=== PATIENT | female | born 1965 | race Caucasian/White ===

== ENCOUNTER 2019-10-12 20:14 | Inpatient (IN) | payer MEDICAID ==
[~2019-10-12] VITALS: Ht 144.8 cm; Wt 54.9 kg
[~2019-10-12 20:14] MED LIST: AMLO-257 PO; SERT50TA12 PO
[2019-10-12] MEDS ORDERED: ASPI-1111 PO (23:27)
[2019-10-12] MEDS ORDERED: LISI-662 PO (23:27)
[2019-10-12] MEDS ORDERED: ALBU8HFA IH (23:27)
[2019-10-12] MEDS ORDERED: AMLO-258 PO (23:27)
[2019-10-12] MEDS ORDERED: DIVA-112 PO (23:27)
[2019-10-12] MEDS ORDERED: HYDR25TA84 PO (23:27)
[2019-10-12] MEDS ORDERED: MIRT30 PO (23:27)
[2019-10-12] MEDS ORDERED: CARI3CAP PO (23:27)
[2019-10-12] MEDS ORDERED: ATOR40TA28 PO (23:27)
[2019-10-12] MEDS ORDERED: ATEN100T92 PO (23:27)
[2019-10-12] MEDS ORDERED: DiphenhydrAMINE HCL 50 MG/ML VIAL IVP ONE (23:30)
[2019-10-12] MEDS ORDERED: LORazepam 2 MG/ML VIAL IVP ONE (23:30)
[2019-10-12 23:39] LABS: BASOPHILS % (AUTO) 0.8 % (0.0-2.0); EOSINOPHILS % (AUTO) 0.3 % (1.0-6.0); HEMATOCRIT 40.6 % (36-46); HEMOGLOBIN 13.4 g/dL (12.0-16.0); LYMPHOCYTES # (AUTO) 1.9 K/uL (1.0-4.8); LYMPHOCYTES % (AUTO) 15.8 % (22.0-44.0); MEAN CORPUSCULAR HEMOGLOBIN 28.3 pg (26.0-34.0); MEAN CORPUSCULAR HGB CONC 33.1 G/dL (31.0-37.0); MEAN CORPUSCULAR VOLUME 86 fL (80-100); MONOCYTES # (AUTO) 0.8 K/uL (0.1-1.0); MONOCYTES % (AUTO) 6.3 % (2.0-9.0); NEUTROPHILS # (AUTO) 9.3 K/uL (1.8-7.7); NEUTROPHILS % (AUTO) 76.8 % (40.0-70.0); PLATELET COUNT (AUTO) 265 K/uL (150-450); RED BLOOD CELL COUNT(AUTO) 4.74 MIL/uL (4.00-5.20); RED CELL DISTRIBUTION WIDTH 14.1 % (11.5-14.5)
[2019-10-12 23:45] LABS: ANION GAP 11 mmol/L (8-16); CALCIUM, TOTAL 10.2 mg/dL (8.8-10.5); CARBON DIOXIDE 28 mmol/L (22-29); CHLORIDE 106 mmol/L (98-107); CREATININE 1.02 mg/dL (0.60-1.30); GLOMERULAR FILTR. RATE CALC 56 mL/min (>60); GLUCOSE,RANDOM 117 mg/dL (70-110); POTASSIUM 3.5 mmol/L (3.5-5.1); SODIUM SERUM 145 mmol/L (136-145); UREA NITROGEN, BLOOD 27 mg/dL (7-18)
[2019-10-12 23:51] LABS: ALANINE AMINOTRANSFERASE 17 U/L (12-78); ALBUMIN 4.3 g/dL (3.4-5.0); ALKALINE PHOSPHATASE 85 U/L (46-116); ASPARTATE AMINOTRANSFERASE 13 U/L (15-37); BILIRUBIN,TOTAL 0.3 mg/dL (0.1-1.0)
[2019-10-12 23:54] LABS: ACETAMINOPHEN < 2 mcg/mL (10-30)
[2019-10-13 00:01] LABS: SALICYLATE < 2.8 mg/dL (2.8-20.0)
[2019-10-13] MEDS ORDERED: LORazepam 2 MG TABLET PO PRN (04:30)
[2019-10-13] MEDS ORDERED: ZOLPIDEM TARTRATE 10 MG TABLET PO PRN (04:30)
[2019-10-13] MEDS ORDERED: HALOPERIDOL 5 MG TABLET PO PRN (04:30)
[2019-10-13 05:10] LABS: AMPHET/METH SCREEN,URINE NEGATIVE (NEGATIVE); BARBITURATE SCREEN, URINE NEGATIVE (NEGATIVE); BENZODIAZEPINES SCREEN,URINE NEGATIVE (NEGATIVE); CANNABINOID SCREEN,URINE NEGATIVE (NEGATIVE); COCAINE SCREEN,URINE NEGATIVE (NEGATIVE); METHADONE SCREEN, URINE NEGATIVE (NEGATIVE); OPIATE SCREEN,URINE NEGATIVE (NEGATIVE)
[2019-10-13 05:14] LABS: PHENCYCLIDINE SCREEN,URINE NEGATIVE (NEGATIVE)
[2019-10-13] MEDS ORDERED: MAG HYDROX/AL HYDROX/SIMETH ES 30 ML SUSPENSION UDCUP PO PRN (08:30)
[2019-10-13] MEDS ORDERED: ALBUTEROL SULFATE HFA 90 MCG/PUFF 8 GM INHALER IH PRN (08:30)
[2019-10-13] MEDS ORDERED: PETROLATUM,WHITE 28 GM JELLY TP PRN (08:30)
[2019-10-13] MEDS ORDERED: LOPERAMIDE HCL 2 MG CAPSULE PO PRN (08:30)
[2019-10-13] MEDS ORDERED: ONDANSETRON HCL 4 MG TABLET PO PRN (08:30)
[2019-10-13] MEDS ORDERED: GuaiFENesin/D-METHORPHAN [SUGAR-FREE] 200-20MG/10 ML SYRUP UDCUP PO PRN (08:30)
[2019-10-13] MEDS ORDERED: NICOTINE 14 MG/24 HOUR PATCH TD PRN (08:30)
[2019-10-13] MEDS ORDERED: IBUPROFEN 400 MG TABLET PO PRN (08:30)
[2019-10-13] MEDS ORDERED: CloNIDine HCL 0.1 MG TABLET PO PRN (08:30)
[2019-10-13] MEDS ORDERED: MAGNESIUM HYDROXIDE SUSPENSION 30 ML UDCUP PO PRN (08:30)
[2019-10-13] MEDS ORDERED: ACETAMINOPHEN 325 MG TABLET PO PRN (08:30)
[2019-10-13] MEDS ORDERED: DOCUSATE SODIUM 100 MG CAPSULE PO PRN (08:30)
[2019-10-13] MEDS: ASPIRIN 81 MG EC TABLET PO SCH (09:00)
[2019-10-13] MEDS: LISINOPRIL 20 MG TABLET PO SCH (09:00)
[2019-10-13] MEDS: AmLODIPine BESYLATE 10 MG TABLET PO SCH (09:00)
[2019-10-13] MEDS: HydrALAZINE HCL 25 MG TABLET PO SCH ×4 (09:00→20:28)
[2019-10-13 09:09] VITALS: BP 145/80
[2019-10-13] MEDS: ATENOLOL 50 MG TABLET PO SCH (09:28)
[2019-10-13] MEDS ORDERED: PNEUMOCOCCAL VACCINE POLYVALENT 0.5 ML VIAL [PPSV23] IM ONE (10:30)
[2019-10-13] MEDS ORDERED: PERMETHRIN 5% 60 GM CREAM TP ONE (15:00)
[2019-10-13 16:16] VITALS: BP 132/66
[2019-10-13] MEDS ORDERED: DIVALPROEX SODIUM 500 MG DR TABLET PO SCH (17:00)
[2019-10-13] MEDS ORDERED: HALOPERIDOL LACTATE 5 MG/ML VIAL ONE (18:50)
[2019-10-13] MEDS ORDERED: DiphenhydrAMINE HCL 50 MG/ML VIAL ONE (18:50)
[2019-10-13] MEDS ORDERED: HALOPERIDOL LACTATE 5 MG/ML VIAL IM ONE (19:00)
[2019-10-13] MEDS ORDERED: DiphenhydrAMINE HCL 50 MG/ML VIAL IM ONE (19:00)
[2019-10-13] MEDS ORDERED: LORazepam 2 MG/ML VIAL IM ONE (19:00)
[2019-10-13 20:00] VITALS: BP 110/68
[2019-10-13] MEDS: MIRTAZAPINE 30 MG TABLET PO SCH (20:28)
[2019-10-13] MEDS: DIVALPROEX SODIUM 500 MG DR TABLET PO SCH (20:28)
[2019-10-13] MEDS: ATORVASTATIN CALCIUM 40 MG TABLET PO SCH (20:28)
[2019-10-14 00:43] VITALS: BP 136/71
[2019-10-14 08:44] VITALS: BP 124/81
[2019-10-14] MEDS: AmLODIPine BESYLATE 10 MG TABLET PO SCH (09:00)
[2019-10-14] MEDS: HydrALAZINE HCL 25 MG TABLET PO SCH ×5 (09:00→20:52)
[2019-10-14] MEDS: SERTRALINE HCL 50 MG TABLET PO SCH (09:00)
[2019-10-14] MEDS: ASPIRIN 81 MG EC TABLET PO SCH (09:00)
[2019-10-14] MEDS: DIVALPROEX SODIUM 500 MG DR TABLET PO SCH ×2 (09:00→20:52)
[2019-10-14] MEDS: LISINOPRIL 20 MG TABLET PO SCH (09:00)
[2019-10-14] MEDS: ATENOLOL 50 MG TABLET PO SCH (09:00)
[2019-10-14 16:15] VITALS: BP 122/79
[2019-10-14] MEDS: MIRTAZAPINE 30 MG TABLET PO SCH (20:52)
[2019-10-14] MEDS: ATORVASTATIN CALCIUM 40 MG TABLET PO SCH (20:52)
[2019-10-15 00:35] VITALS: BP 122/70
[2019-10-15 08:54] VITALS: BP 127/72
[2019-10-15] MEDS: DIVALPROEX SODIUM 500 MG DR TABLET PO SCH ×2 (08:54→20:42)
[2019-10-15] MEDS: ASPIRIN 81 MG EC TABLET PO SCH (08:54)
[2019-10-15] MEDS: SERTRALINE HCL 50 MG TABLET PO SCH (08:54)
[2019-10-15] MEDS: LISINOPRIL 20 MG TABLET PO SCH (08:54)
[2019-10-15] MEDS: AmLODIPine BESYLATE 10 MG TABLET PO SCH (08:55)
[2019-10-15] MEDS: ATENOLOL 50 MG TABLET PO SCH (08:55)
[2019-10-15] MEDS: HydrALAZINE HCL 25 MG TABLET PO SCH ×4 (08:55→20:42)
[2019-10-15 16:05] VITALS: BP 114/68
[2019-10-15] MEDS: ATORVASTATIN CALCIUM 40 MG TABLET PO SCH (20:42)
[2019-10-15] MEDS: MIRTAZAPINE 30 MG TABLET PO SCH (20:42)
[2019-10-16 05:19] VITALS: BP 125/61
[2019-10-16 08:09] VITALS: BP 123/68
[2019-10-16] MEDS: HydrALAZINE HCL 25 MG TABLET PO SCH ×4 (08:55→21:00)
[2019-10-16] MEDS: DIVALPROEX SODIUM 500 MG DR TABLET PO SCH ×2 (08:56→21:00)
[2019-10-16] MEDS: ATENOLOL 50 MG TABLET PO SCH (08:56)
[2019-10-16] MEDS: LISINOPRIL 20 MG TABLET PO SCH (08:56)
[2019-10-16] MEDS: AmLODIPine BESYLATE 10 MG TABLET PO SCH (08:56)
[2019-10-16] MEDS: SERTRALINE HCL 50 MG TABLET PO SCH (08:57)
[2019-10-16] MEDS: ASPIRIN 81 MG EC TABLET PO SCH (08:57)
[2019-10-16 16:23] VITALS: BP 100/67
[2019-10-16] MEDS: MIRTAZAPINE 30 MG TABLET PO SCH (21:00)
[2019-10-16] MEDS: ATORVASTATIN CALCIUM 40 MG TABLET PO SCH (21:00)
[2019-10-17 00:10] VITALS: BP 112/62
[2019-10-17] MEDS: LISINOPRIL 20 MG TABLET PO SCH (08:34)
[2019-10-17] MEDS: HydrALAZINE HCL 25 MG TABLET PO SCH ×4 (08:34→20:32)
[2019-10-17] MEDS: AmLODIPine BESYLATE 10 MG TABLET PO SCH (08:34)
[2019-10-17] MEDS: ATENOLOL 50 MG TABLET PO SCH (08:34)
[2019-10-17] MEDS: SERTRALINE HCL 50 MG TABLET PO SCH (08:35)
[2019-10-17] MEDS: DIVALPROEX SODIUM 500 MG DR TABLET PO SCH ×2 (08:35→20:32)
[2019-10-17] MEDS: ASPIRIN 81 MG EC TABLET PO SCH (08:35)
[2019-10-17 08:50] VITALS: BP 101/62
[2019-10-17 12:40] VITALS: BP 97/53
[2019-10-17 16:12] VITALS: BP 103/57
[2019-10-17 20:30] VITALS: BP 96/53
[2019-10-17] MEDS: ATORVASTATIN CALCIUM 40 MG TABLET PO SCH (20:32)
[2019-10-17] MEDS: MIRTAZAPINE 30 MG TABLET PO SCH (20:32)
[2019-10-18] VITALS: BP 118/72
[2019-10-18 08:05] VITALS: BP 136/64
[2019-10-18] MEDS: DIVALPROEX SODIUM 500 MG DR TABLET PO SCH ×2 (08:52→20:20)
[2019-10-18] MEDS: SERTRALINE HCL 50 MG TABLET PO SCH (08:52)
[2019-10-18] MEDS: LISINOPRIL 20 MG TABLET PO SCH (08:52)
[2019-10-18] MEDS: ASPIRIN 81 MG EC TABLET PO SCH (08:52)
[2019-10-18] MEDS: AmLODIPine BESYLATE 10 MG TABLET PO SCH (08:52)
[2019-10-18 16:34] VITALS: BP 109/59
[2019-10-18] MEDS: ATORVASTATIN CALCIUM 40 MG TABLET PO SCH (20:20)
[2019-10-18] MEDS: MIRTAZAPINE 30 MG TABLET PO SCH (20:20)
[2019-10-19 06:03] VITALS: BP 110/68
[2019-10-19 08:21] VITALS: BP 130/69
[2019-10-19 08:28] LABS: BASOPHILS % (AUTO) 1.8 % (0.0-2.0); HEMATOCRIT 38.2 % (36-46); HEMOGLOBIN 12.2 g/dL (12.0-16.0); LYMPHOCYTES # (AUTO) 1.9 K/uL (1.0-4.8); LYMPHOCYTES % (AUTO) 37.4 % (22.0-44.0); MEAN CORPUSCULAR HGB CONC 31.8 G/dL (31.0-37.0); MEAN CORPUSCULAR VOLUME 88 fL (80-100); MONOCYTES # (AUTO) 0.4 K/uL (0.1-1.0); MONOCYTES % (AUTO) 7.7 % (2.0-9.0); NEUTROPHILS # (AUTO) 2.6 K/uL (1.8-7.7); NEUTROPHILS % (AUTO) 51.1 % (40.0-70.0); PLATELET COUNT (AUTO) 194 K/uL (150-450); RED BLOOD CELL COUNT(AUTO) 4.34 MIL/uL (4.00-5.20); RED CELL DISTRIBUTION WIDTH 14.2 % (11.5-14.5)
[2019-10-19] MEDS: LISINOPRIL 20 MG TABLET PO SCH (10:22)
[2019-10-19] MEDS: DIVALPROEX SODIUM 500 MG DR TABLET PO SCH ×2 (10:22→20:12)
[2019-10-19] MEDS: SERTRALINE HCL 50 MG TABLET PO SCH (10:22)
[2019-10-19] MEDS: ASPIRIN 81 MG EC TABLET PO SCH (10:22)
[2019-10-19] MEDS: AmLODIPine BESYLATE 10 MG TABLET PO SCH (10:22)
[2019-10-19 16:22] VITALS: BP 90/60
[2019-10-19] MEDS: ATORVASTATIN CALCIUM 40 MG TABLET PO SCH (20:12)
[2019-10-19] MEDS: MIRTAZAPINE 30 MG TABLET PO SCH (20:13)
[2019-10-20 06:27] VITALS: BP 129/64
[2019-10-20 08:42] VITALS: BP 140/80
[2019-10-20] MEDS: AmLODIPine BESYLATE 10 MG TABLET PO SCH (09:15)
[2019-10-20] MEDS: DIVALPROEX SODIUM 500 MG DR TABLET PO SCH ×2 (09:15→20:04)
[2019-10-20] MEDS: SERTRALINE HCL 50 MG TABLET PO SCH (09:15)
[2019-10-20] MEDS: LISINOPRIL 20 MG TABLET PO SCH (09:15)
[2019-10-20] MEDS: ASPIRIN 81 MG EC TABLET PO SCH (09:15)
[2019-10-20 17:37] VITALS: BP 99/61
[2019-10-20] MEDS: MIRTAZAPINE 30 MG TABLET PO SCH (20:04)
[2019-10-20] MEDS: ATORVASTATIN CALCIUM 40 MG TABLET PO SCH (20:04)
[2019-10-21 05:58] VITALS: BP 102/67
[2019-10-21] MEDS: LISINOPRIL 20 MG TABLET PO SCH (09:00)
[2019-10-21] MEDS: AmLODIPine BESYLATE 10 MG TABLET PO SCH (09:00)
[2019-10-21 09:16] VITALS: BP 109/60
[2019-10-21] MEDS: SERTRALINE HCL 50 MG TABLET PO SCH (09:52)
[2019-10-21] MEDS: DIVALPROEX SODIUM 500 MG DR TABLET PO SCH ×2 (09:52→20:03)
[2019-10-21] MEDS: ASPIRIN 81 MG EC TABLET PO SCH (09:52)
[2019-10-21 16:34] VITALS: BP 120/69
[2019-10-21] MEDS: ATORVASTATIN CALCIUM 40 MG TABLET PO SCH (20:03)
[2019-10-21] MEDS: MIRTAZAPINE 30 MG TABLET PO SCH (20:03)
[2019-10-22 05:34] VITALS: BP 121/68
[2019-10-22 08:06] LABS: CHOL/HDL RATIO 3.7 (3.9-5.7)
[2019-10-22] MEDS: ASPIRIN 81 MG EC TABLET PO SCH (08:34)
[2019-10-22] MEDS: LISINOPRIL 20 MG TABLET PO SCH (08:34)
[2019-10-22] MEDS: SERTRALINE HCL 50 MG TABLET PO SCH (08:34)
[2019-10-22] MEDS: AmLODIPine BESYLATE 10 MG TABLET PO SCH (08:34)
[2019-10-22] MEDS: DIVALPROEX SODIUM 500 MG DR TABLET PO SCH ×2 (08:34→20:34)
[2019-10-22 09:07] VITALS: BP 122/64
[2019-10-22 16:08] VITALS: BP 129/73
[2019-10-22] MEDS: MIRTAZAPINE 30 MG TABLET PO SCH (20:33)
[2019-10-22] MEDS: ATORVASTATIN CALCIUM 40 MG TABLET PO SCH (20:34)
[2019-10-23 05:08] VITALS: BP 128/75
[2019-10-23 08:13] VITALS: BP 119/72
[2019-10-23] MEDS: DIVALPROEX SODIUM 500 MG DR TABLET PO SCH ×2 (08:51→20:17)
[2019-10-23] MEDS: ASPIRIN 81 MG EC TABLET PO SCH (08:51)
[2019-10-23] MEDS: SERTRALINE HCL 50 MG TABLET PO SCH (08:52)
[2019-10-23] MEDS: LISINOPRIL 20 MG TABLET PO SCH (10:36)
[2019-10-23] MEDS: AmLODIPine BESYLATE 10 MG TABLET PO SCH (10:36)
[2019-10-23 10:37] VITALS: BP 155/93
[2019-10-23 16:03] VITALS: BP 115/64
[2019-10-23] MEDS: ATORVASTATIN CALCIUM 40 MG TABLET PO SCH (20:17)
[2019-10-23] MEDS: MIRTAZAPINE 30 MG TABLET PO SCH (20:17)
[2019-10-24 05:25] VITALS: BP 118/70
[2019-10-24 08:07] VITALS: BP 118/79
[2019-10-24] MEDS: ASPIRIN 81 MG EC TABLET PO SCH (08:16)
[2019-10-24] MEDS: SERTRALINE HCL 50 MG TABLET PO SCH (08:16)
[2019-10-24] MEDS: DIVALPROEX SODIUM 500 MG DR TABLET PO SCH ×2 (08:16→20:07)
[2019-10-24] MEDS: AmLODIPine BESYLATE 10 MG TABLET PO SCH (08:17)
[2019-10-24] MEDS: LISINOPRIL 20 MG TABLET PO SCH (08:17)
[2019-10-24 16:27] VITALS: BP 124/60
[2019-10-24] MEDS: MIRTAZAPINE 30 MG TABLET PO SCH (20:07)
[2019-10-24] MEDS: ATORVASTATIN CALCIUM 40 MG TABLET PO SCH (20:07)
[2019-10-25 00:35] VITALS: BP 122/70
[2019-10-25] MEDS: ASPIRIN 81 MG EC TABLET PO SCH (08:29)
[2019-10-25] MEDS: AmLODIPine BESYLATE 10 MG TABLET PO SCH (08:29)
[2019-10-25] MEDS: DIVALPROEX SODIUM 500 MG DR TABLET PO SCH (08:29)
[2019-10-25] MEDS: SERTRALINE HCL 50 MG TABLET PO SCH (08:29)
[2019-10-25] MEDS: LISINOPRIL 20 MG TABLET PO SCH (08:29)
[2019-10-25 08:35] VITALS: BP 124/90
[2019-10-25] MEDS ORDERED: DIVA-112 PO (11:30)
== END 2019-10-25 14:00 | disposition home or self-care (01) | DRG 885 ==
LOC: EMS 20:14 → B2S 10-13 06:00
DX: F25.1 Schizoaffective disorder, depressive type (principal); E78.5 Hyperlipidemia, unspecified; D72.829 Elevated white blood cell count, unspecified; F31.9 Bipolar disorder, unspecified; G44.209 Tension-type headache, unspecified, not intractable; I10 Essential (primary) hypertension; J45.909 Unspecified asthma, uncomplicated; Z20.828 Contact with and (suspected) exposure to other viral communicable diseases; Z59.0 Homelessness; Z91.19 Patient's noncompliance with other medical treatment and regimen; Z91.81 History of falling
CPT/HCPCS: 93005; G0480; G0481; J1200; J1630; J2060

== ENCOUNTER 2023-02-03 13:55 | Emergency (ER) | payer MEDICAID ==
[~2023-02-03] VITALS: Ht 160 cm; Wt 63.6 kg
[~2023-02-03 13:55] MED LIST changes: -AMLO-257 PO; +AMLO-258 PO; +ASPI-1444 PO; +ATOR40TA28 PO; +DIVA-112 PO; +LISI-894 PO; +MIRT-149 PO; +SERT-158 PO; -SERT50TA12 PO
[2023-02-03 13:58] VITALS: TEMP 98.5
[2023-02-03 14:42] LABS: BASOPHILS % (AUTO) 1.2 % (0.0-2.0); EOSINOPHILS % (AUTO) 2.6 % (1.0-6.0); HEMATOCRIT 36.7 % (36-46); HEMOGLOBIN 12.4 g/dL (12.0-16.0); LYMPHOCYTES # (AUTO) 2.2 K/uL (1.0-4.8); LYMPHOCYTES % (AUTO) 29.2 % (22.0-44.0); MEAN CORPUSCULAR HEMOGLOBIN 29.1 pg (26.0-34.0); MEAN CORPUSCULAR HGB CONC 33.6 G/dL (31.0-37.0); MEAN CORPUSCULAR VOLUME 87 fL (80-100); MONOCYTES # (AUTO) 0.5 K/uL (0.1-1.0); MONOCYTES % (AUTO) 6.3 % (2.0-9.0); NEUTROPHILS # (AUTO) 4.7 K/uL (1.8-7.7); NEUTROPHILS % (AUTO) 60.7 % (40.0-70.0); PLATELET COUNT (AUTO) 190 K/uL (150-450); RED BLOOD CELL COUNT(AUTO) 4.24 MIL/uL (4.00-5.20); RED CELL DISTRIBUTION WIDTH 14.2 % (11.5-14.5); WHITE BLOOD COUNT (AUTO) 7.7 K/uL (4.5-11.0)
[2023-02-03] MEDS ORDERED: IOHEXOL 350 MG/ML 100 ML VIAL ONE (14:42)
[2023-02-03] MEDS ORDERED: SODIUM CHLORIDE 0.9% 100 ML ONE (14:43)
[2023-02-03] MEDS ORDERED: KETOROLAC TROMETHAMINE 30 MG/ML VIAL IVP ONE (14:45)
[2023-02-03] MEDS ORDERED: ONDANSETRON HCL 4 MG/2 ML VIAL IVP ONE (14:45)
[2023-02-03 14:52] LABS: CALCIUM, TOTAL 8.5 mg/dL (8.8-10.5); CREATININE 1.18 mg/dL (0.60-1.30); POTASSIUM 3.2 mmol/L (3.5-5.1)
[2023-02-03 14:58] LABS: ALBUMIN 3.1 g/dL (3.4-5.0); BILIRUBIN,TOTAL 0.3 mg/dL (0.1-1.0); TOTAL PROTEIN, SERUM 6.7 g/dL (6.4-8.2)
[2023-02-03] MEDS ORDERED: POTASSIUM CHLORIDE 20 MEQ ER TABLET PO ONE (16:00)
[2023-02-03 16:28] LABS: APPEARANCE,URINE HAZY (CLEAR); BILIRUBIN,URINE NEGATIVE (NEGATIVE); COLOR,URINE YELLOW (YELLOW); GLUCOSE, URINE (UA) NEGATIVE (NEGATIVE); KETONES,URINE TRACE mg/dL (NEGATIVE); LEUKOCYTE ESTERASE ,URINE MODERATE (NEGATIVE); NITRATE,URINE NEGATIVE (NEGATIVE); OCCULT BLOOD,URINE TRACE (NEGATIVE); PH,URINE 5.5 (5.0-8.0); PROTEIN,URINE 30-70 mg/dL (NEGATIVE); SPECIFIC GRAVITIY, URINE 1.023 (1.003-1.030)
[2023-02-03 16:57] LABS: BACTERIA,URINE Many /HPF (None Seen); RBC,URINE None Seen /HPF (0-2); SQUAMOUS EPITHELIAL CELL,UR Moderate /LPF (None Seen)
[2023-02-03] MEDS ORDERED: CEPH-558 PO (17:35)
[2023-02-03] MEDS ORDERED: CEPHALEXIN MONOHYDRATE 500 MG CAPSULE PO ONE (17:45)
[2023-02-03 17:58] VITALS: BP 149/82; PULSE 82; RESP 16
== END 2023-02-03 18:30 | disposition home or self-care (01) ==
LOC: EMS 14:16
DX: N39.0 Urinary tract infection, site not specified (principal); F32.A Depression, unspecified; I10 Essential (primary) hypertension; F20.9 Schizophrenia, unspecified; Z88.1 Allergy status to other antibiotic agents; Z88.6 Allergy status to analgesic agent
CPT/HCPCS: 99285; 74177; 96374; 96375; 80053; 81001; 83690; 85025; 36415; 87086; 87186; J1885; J2405; Q9967; J7050

== ENCOUNTER 2025-03-11 22:37 | Emergency (ER) | payer MEDICAID ==
[~2025-03-11] VITALS: Ht 144.8 cm; Wt 50.0 kg
[~2025-03-11 22:37] MED LIST changes: +CEPH-558 PO
[2025-03-11 22:45] VITALS: BP 160/80; PULSE 100; RESP 15; O2SAT 96
[2025-03-11] MEDS: LORazepam 2 MG/ML VIAL IM ONE (23:56)
== END 2025-03-12 02:33 | disposition home or self-care (01) ==
LOC: EMS 22:38
DX: F25.9 Schizoaffective disorder, unspecified (principal); E11.9 Type 2 diabetes mellitus without complications; F32.A Depression, unspecified; I10 Essential (primary) hypertension; Z79.82 Long term (current) use of aspirin; Z79.899 Other long term (current) drug therapy; Z86.73 Personal history of transient ischemic attack (TIA), and cerebral infarction without residual deficits; Z88.1 Allergy status to other antibiotic agents; Z88.5 Allergy status to narcotic agent
CPT/HCPCS: 99284; 96372; J1200; J1630; J2060